=== PATIENT | female | born 1975 | race Caucasian/White ===

== ENCOUNTER → 2023-08-28 | Outpatient (CLI) | payer OTHER, SELFPAY ==
--- NOTE | 2023-08-28 14:02 | VDLE_ITS ---
Reason For Study: swelling RIGHT LEFT GSV is normal. GSV is normal. CFV is compressible, spontaneous, phasic, CFV is compressible, spontaneous, phasic, competent and demonstrates normal competent, and demonstrates normal augmentation. augmentation. FV is compressible, spontaneous, phasic, FV is compressible, spontaneous, phasic, competent and demonstrates normal competent and demonstrates normal augmentation. augmentation. POP V is compressible, spontaneous, phasic, POP V is compressible, spontaneous, phasic, competent and demonstrates normal competent and demonstrates normal augmentation. augmentation. T/P Trunk is compressible. T/P Trunk is compressible. PTV is compressible. PTV is compressible. RT PerV is compressible. LT PerV is compressible. Procedure This is a venous duplex using B-mode, color flow and spectral Doppler. Exam performed in department. The exam was diagnostic. A preliminary report was called and/or faxed to Dr. Coleman. VL/Venous Duplex US - Drake Extrem Interpretation Summary No evidence for acute deep venous thrombosis bilateral lower extremities with p atent and compressible bilateral great saphenous veins. Ordering Physician: Ronnie Coleman Performed By: Solo Almaguer RVT
== END | disposition home or self-care (01) ==
PROVIDERS: PCP Internal Medicine; Referring Provider Internal Medicine Hematology & Oncology; Visit Provider Internal Medicine Hematology & Oncology
DX: M79.89 Other specified soft tissue disorders (principal)
CPT/HCPCS: 93970